=== PATIENT | male | born 1965 | race Caucasian/White ===

== ENCOUNTER 2018-05-21 10:24 | Emergency (ER) | payer BC ==
[~2018-05-21] VITALS: Ht 175.3 cm; Wt 88.6 kg
[2018-05-21 10:34] VITALS: TEMP 98.5
[2018-05-21] MEDS ORDERED: ZOLOFT 100MG100 MG PO (11:10)
[2018-05-21] MEDS ORDERED: EXALGO32 PO (11:11)
[2018-05-21] MEDS ORDERED: XANAX 0.5MG0.5 MG PO (11:11)
[2018-05-21] MEDS ORDERED: LYRICA 150MG C150 MG PO (11:12)
[2018-05-21] MEDS ORDERED: LYRICA 75MG CAP75 MG PO (11:12)
[2018-05-21 11:39] LABS: COLLECTION METHOD CLEAN CATCH
[2018-05-21 11:52] LABS: BASO % 0.1 % (0.0-2.0); EOS % 0.1 % (0-4.0); GRAN # 8.4 (1.4-6.5); HEMATOCRIT 45.4 % (42.0-52.0); LYMPH # 2.5 (1.2-3.4); LYMPH % 21.7 % (20.0-51.0); MEAN CELL VOLUME 91 fl (80.0-100.0); MEAN CORPUSCULAR HEMOGLOBIN 32 pg (27.0-31.0); MEAN CORPUSCULAR HGB CONC 35 g/dl (33.0-37.0); MEAN PLATELET VOLUME 11.2 fl (7.4-10.4); MONO # 0.7 (0.1-0.6); MONO % 5.8 % (1.7-9.3); PLATELET COUNT 422 K/mm3 (130-400); REDCELL DISTRIBUTION WIDTH-CV 13.1 % (11.5-14.5)
[2018-05-21 11:58] LABS: MUCOUS Present /lpf; PH 5 (5-8); SQUAMOUS EPITHELIAL 0-2 /hpf; URINE APPEARANCE Hazy; URINE BACTERIA None Seen /hpf; URINE BILIRUBIN Negative (NEGATIVE); URINE BLOOD Negative (NEGATIVE); URINE CALCIUM OXALATE CRYSTAL Present /hpf; URINE COLOR Yellow; URINE GLUCOSE Negative (NEGATIVE); URINE KETONE Negative (NEGATIVE); URINE LEUKOCYTE ESTERASE Negative (NEGATIVE); URINE NITRATE Negative (NEGATIVE); URINE PROTEIN(semi-quant) 2+ (NEGATIVE); URINE RBC 0-2 /hpf; URINE UROBILINOGEN Negative (NEGATIVE)
[2018-05-21 12:06] LABS: ALBUMIN 4.5 gm/dL (3.5-5.0); BILIRUBIN,TOTAL 0.5 mg/dL (0.0-1.0); C-REACTIVE PROTEIN 0.6 mg/dL (0.0-0.9); CALCIUM 9.8 mg/dL (8.4-10.2); POTASSIUM 3.5 mmol/L (3.4-5.0); TOTAL PROTEIN 8.8 gm/dL (6.4-8.2)
[2018-05-21 14:14] VITALS: BP 139/98; PULSE 74
== END 2018-05-21 14:15 | disposition home or self-care (01) ==
LOC: COL.ER 10:24
PROVIDERS: Family Medicine
DX: K52.9 Noninfective gastroenteritis and colitis, unspecified (principal); G47.30 Sleep apnea, unspecified; R09.02 Hypoxemia
CPT/HCPCS: J2060; J2405; J7030; J7120